=== PATIENT | female | born 1935 | race Caucasian/White ===

== ENCOUNTER → 2016-07-17 | Outpatient (CLI) | payer OTHER | LOC: BHCLAF 13:15 | PROVIDERS: ATTEND Internal Medicine Cardiovascular Disease | DX: I35.0 Nonrheumatic aortic (valve) stenosis (principal); I25.10 Atherosclerotic heart disease of native coronary artery without angina pectoris | CPT/HCPCS: 93306-PO ==

== ENCOUNTER → 2016-12-14 | Outpatient (CLI) | payer OTHER | LOC: CIMAGING 10:17 | DX: Z12.31 Encounter for screening mammogram for malignant neoplasm of breast (principal) | CPT/HCPCS: G0202 ==

== ENCOUNTER → 2016-12-24 | Outpatient (CLI) | payer OTHER | LOC: CIMAGING 13:23 | PROVIDERS: ATTEND Internal Medicine | DX: R92.8 Other abnormal and inconclusive findings on diagnostic imaging of breast (principal) | CPT/HCPCS: 76641; G0206 ==

== ENCOUNTER → 2017-01-06 | Outpatient (CLI) | payer OTHER ==
[~2017-01-06] MED LIST: BUPIVACAINE 0.5% 10 ML SDV ONE; LIDO/EPI 1% **Not for Epidural 20 ML MDV ONE; THROMBIN (BOVINE) 5,000 UNIT VIAL TP ONE
== END ==
LOC: FIMAGING 07:11
PROVIDERS: ATTEND Internal Medicine
PROC: 0HBT3ZX Excision of Right Breast, Percutaneous Approach, Diagnostic (ICD-10-PCS; principal; 2017-01-06)
DX: C50.911 Malignant neoplasm of unspecified site of right female breast (principal)
CPT/HCPCS: 19083; 88361; G0206

== ENCOUNTER 2017-01-21 06:26 | Day surgery (SDC) | payer OTHER ==
[2017-01-21] MEDS ORDERED: GADOBUTROL 10 ML VIAL IVP ONE (06:51)
[2017-01-21] MEDS ORDERED: LIDOCAINE 1% 300 MG/30 ML SDV ONE (07:17)
[2017-01-21] MEDS ORDERED: LIDOCAINE 1% 2 ML INJ ONE (07:31)
[2017-01-21] MEDS ORDERED: LIDOCAINE 1% 2 ML INJ ID PRN ×2 (07:35→11:00)
[2017-01-21] MEDS ORDERED: LR 1,000 ML IV ONE (07:35)
[2017-01-21] MEDS ORDERED: ceFAZolin 2 GM/DEXTROSE 100 ML IV ONE ×2 (07:58→11:00)
[2017-01-21] MEDS ORDERED: BUPIVACAINE 0.5% 30 ML SDV ONE (08:49)
[2017-01-21] MEDS ORDERED: LIDO/EPI 1% **for epidural** 30 ML SDV ONE (08:50)
--- NOTE | 2017-01-21 09:06 | GHP ---
[f rep st] PREOP HISTORY AND PHYSICAL DATE OF ANTICIPATED SURGERY: 01/21/2017. 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 HISTORY OF PRESENT ILLNESS: The patient is an 81-year-old woman who had a positive screening mammogram on 12/14/2016, showing an asymmetric density in the lateral central right breast. Diagnostic mammogram and ultrasound showed irregularly marginated mass at the 9 o'clock position of the right breast, measuring 3 x 4 x 9 mm on 12/24/2016, and had a biopsy. Pathology revealed Oralia grade II right breast invasive carcinoma with ductal and lobular features at the 9 o'clock position, 4 cm from the nipple. ER/TX positive. HER2 /lea pending. She has a history of left breast DCIS in 1998, treated with lumpectomy without radiation. She has a history of breast biopsy in 2013, which was benign. She denies any other family history of breast cancer or other cancers. She first menstruated at age 13, last measured in her 40s. G2, P2 and she was 30 years old at the of her first child. She has never taken hormone replacement therapy. PAST MEDICAL HISTORY: Aortic regurgitation, aortic stenosis, arthritis, history of breast cancer, coronary artery disease, gout, hyperlipidemia, hypertension, and mitral regurgitation. PAST SURGICAL HISTORY: CABG, lumpectomy. MEDICATIONS: Allopurinol, atorvastatin, Centrum silver, Ecotrin 325 mg, fish oil, furosemide, metoprolol, Norvasc, ProAir, ramipril, Spiriva, vitamin D3. ALLERGIES: No known drug allergies. FAMILY HISTORY: No significant family medical history. SOCIAL HISTORY: She is . She is a former smoker. She denies any current alcohol, recreational drug use or tobacco use. REVIEW OF SYSTEMS: 10-point review of systems negative, aside from HPI. PHYSICAL EXAMINATION: GENERAL: Well-developed, well-nourished woman in no acute distress. HEENT: Normocephalic, atraumatic. No gross hearing deficits. Pupils equal and round. No scleral icterus. Mucous membranes moist. NECK: Trachea midline. RESPIRATORY: No increased work of breathing. LUNGS: Clear to auscultation bilaterally. No increased work of breathing. CARDIOVASCULAR: Regular rate and rhythm. No peripheral edema. SKIN: Warm and dry. MUSCULOSKELETAL: Normal gait. Normal nails. PSYCH: Mood and affect normal. NEURO: Grossly intact. BREASTS: Breast exam shows scar tissue in the left lateral breast from previous lumpectomy, intertrigo of the right inframammary fold. Evidence of previous breast biopsy in the right upper outer breast. No other palpable masses, nipple drainage, or skin changes bilaterally. LYMPH: No cervical, supraclavicular, or axillary lymphadenopathy. IMPRESSION AND PLAN: The patient is an 81-year-old woman with a right upper outer breast cancer, invasive with both ductal and lobular features. She will undergo right lumpectomy with sentinel lymph node biopsy. We discussed that she may require radiation after lumpectomy. We discussed risks of surgery including, but not limited to stroke, heart attack, blood clots or . We discussed risks including infection, bleeding, scar ulceration and cosmesis. We also discussed risks of a sentinel lymph node biopsy, including infection, bleeding, nerve damage and lymphedema. She has declined a preop MRI. She is holding off on genetic testing at this time. She would like to discuss this further with her family. She understands the risks of surgery and would like to proceed. Patient was additionally seen by Dr. Carrie Fermin, who agrees with the above impression and plan. She had her questions answered to her satisfaction. /[id number]/MODL MTDD
--- NOTE | 2017-01-21 11:34 | PDHPUP ---
History & Physical Update H&P update statement: This history and physical update is based on an assessment of the patient which was completed after admission or registration (within 24 hours), but prior to the surgery/procedure. H&P update: H&P reviewed & patient examined, no change in patient's condition since H&P completed
[2017-01-21] MEDS ORDERED: MIDAZOLAM 2 MG/2 ML VIAL IVP ONE (11:42)
--- NOTE | 2017-01-21 11:42 | PDANEPAE ---
ANE Past Medical History - Cardiovascular History Hx Hypertension: Yes Hx Arrhythmias: No Hx Chest Pain: No Hx Coronary Artery / Peripheral Vascular Disease: Yes Hx CHF / Valvular Disease: No Hx Palpitations: No Cardiovascular History Comment: AORTIC REGURITATION/STENOSIS - Pulmonary History Hx COPD: Yes Hx Asthma/Reactive Airway Disease: No Hx Recent Upper Respiratory Infection: No Hx Oxygen in Use at Home: No Hx Sleep Apnea: No Sleep Apnea Screening Result - Last Documented: Positive Pulmonary History Comment: CHRONIC COUGH AND PHLEM CONTROLLED WITH RX - Neurologic History Hx Cerebrovascular Accident: No Hx Seizures: No Hx Dementia: No - Endocrine History Hx Diabetes: No - Renal History Hx Renal Disorders: No - Liver History Hx Hepatic Disorders: No - Neurological & Psychiatric Hx Hx Neurological and Psychiatric Disorders: No - Cancer History Hx Cancer: No - Congenital Disorder History Hx Congenital Disorders: No - GI History Hx Gastrointestinal Disorders: No - Other Health History Other Health History: GPIT. ARTHRITIS - Chronic Pain History Chronic Pain: No - Surgical History Prior Surgeries: GABG X2 2001. TONSILLECTOMY. POST HEART CATH SURG TO REPAIR/ REPLACE FEMORAL ARTERY ANE Review of Systems - Exercise capacity METS (RN): 3 METS ANE Patient History - Allergies Allergies/Adverse Reactions: No Known Allergies Allergy (Verified 01/10/16 13:30) - Home Medications Home Medications: Allopurinol DAILY AT 6AM 01/10/16 [Last Taken 01/21/17 06:00] Altace BID 01/10/16 [Last Taken 01/21/17 06:00] Aspirin DAILY AT 6AM 01/10/16 [Last Taken 01/15/17] Lipitor HS 01/10/16 [Last Taken 01/20/17 20:00] Metoprolol Succinate BID 01/10/16 [Last Taken 01/21/17 06:00] Norvasc DAILY AT 6AM 01/10/16 [Last Taken 01/21/17 06:00] Spiriva Handihaler DAILY06 01/10/16 [Last Taken 01/21/17 06:00] Fish Oil DAILY 01/19/17 [Last Taken 01/15/17] Herbal Drugs DAILY 01/19/17 [Last Taken 01/21/17 06:00] Lasix DAILY06 01/19/17 [Last Taken 01/20/17 07:00] Potassium Chloride DAILY06 01/19/17 [Last Taken 01/21/17 06:00] - NPO status NPO Since - Liquids (Date): 01/21/17 NPO Since - Liquids (Time): 06:00 NPO Since - Solids (Date): 01/20/17 NPO Since - Solids (Time): 19:00 - Anes Hx Anes Hx: no prior problems - Smoking Hx Smoking Status: Former smoker ANE Labs/Vital Signs - Vital Signs Blood Pressure: 173/88 Heart Rate: 63 Respiratory Rate: 16 O2 Sat (%): 93 Height: 167.64 cm Weight: 108.862 kg ANE Physical Exam - Airway Neck exam: FROM Mallampati Score: Class 1 Mouth exam: normal dental/mouth exam - Pulmonary Pulmonary: no respiratory distress - Cardiovascular Cardiovascular: regular rate and rhythym - ASA Status ASA Status: IV ANE Anesthesia Plan Anesthesia Plan: GA w LMA
[2017-01-21] MEDS ORDERED: PROPOFOL 200 MG/20 ML VIAL ONE (11:45)
[2017-01-21] MEDS ORDERED: fentaNYL 100 MCG/2 ML INJ ONE (11:45)
[2017-01-21] MEDS ORDERED: fentaNYL 100 MCG/2 ML INJ IVP PRN (12:40)
[2017-01-21] MEDS ORDERED: NALOXONE HCL 0.4 MG/ML INJ IVP PRN (12:40)
[2017-01-21] MEDS ORDERED: ACETAMINOPHEN 500 MG TAB PO PRN (12:40)
[2017-01-21] MEDS ORDERED: OXYCODONE/APAP 5/325 TAB PO PRN (12:40)
[2017-01-21] MEDS ORDERED: ONDANSETRON 4 MG/2 ML VIAL IVP PRN (12:40)
--- NOTE | 2017-01-21 13:00 | POSTOPPROG ---
Post Op Note Date of Operation: 01/21/17 Surgeon: Carrie Fermin Anesthesiologist: nalini Anesthesia: GET(General Endotracheal) Pre-op Diagnosis: R breast invasive ductal Post-op Diagnosis: same Indication: 81 yo with right breast cancer Procedure: R needle localized lumpectomy, R SLN Findings: clip not in specimen, very fatty breast Inf/Abcess present in the surg proc area at time of surgery?: No EBL: Minimal Specimen(s): lumpectomy, sln, margins
--- NOTE | 2017-01-21 13:16 | POSTANESTH ---
Post Anesthetic Evaluation Cardiovascular Status: Normal, Stable Respiratory Status: Normal, Stable Level of Consciousness/Mental Status: Can Participate in Eval Pain Control: Adequate, Prn Tx Ordered Nausea/Vomiting Control: Adequate, Prn Tx Ordered Complications Possibly Related to Anesthesia: None Noted
[2017-01-21 13:30] VITALS: TEMP 97.9
[2017-01-21] MEDS ORDERED: OXYCODONE/APAP 5/325 TAB ONE (14:03)
[2017-01-21 14:28] VITALS: BP 183/65; PULSE 64; RESP 18; O2SAT 87
--- NOTE | 2017-01-21 23:08 | GOP ---
[f rep st] OPERATIVE REPORT DATE OF OPERATION: 01/21/2017 SURGEON: Carrie Fermin MD ANESTHESIA: General. ANESTHESIOLOGIST: Abdiel Rey MD PREOPERATIVE DIAGNOSIS: Right breast invasive ductal carcinoma. POSTOPERATIVE DIAGNOSIS: Right breast invasive ductal carcinoma. PROCEDURE PERFORMED: Right needle-localized lumpectomy, right sentinel lymph node. FINDINGS: The clip was not contained within the specimen. Her breast tissue was very fatty and fragmented. I did encounter the hematoma cavity and came around that. Miller lymph node was negative. ESTIMATED BLOOD LOSS: 10 cc. INDICATIONS: The patient is an 81-year-old woman with a history of left breast ductal carcinoma in situ, and now has right breast invasive ductal carcinoma. DESCRIPTION OF PROCEDURE: The patient was brought into the operating room, placed supine on the table, and general anesthesia was administered. Her right breast and axilla were prepped and draped in the usual sterile fashion. I infiltrated all sites with 0.5% Marcaine prior to making incisions. I made an incision beneath the hair-bearing portion of her right axilla. I dissected down through the subcutaneous space. I used the gamma probe to identify the sentinel lymph node. It was fairly quiet, so I decided to make an ellipse around the wire and created superior inferior skin flaps. Her breast tissue was extremely fatty and was falling apart in my fingers. I continued my dissection and traced the wire. I came across the hematoma cavity and then obtained wider margins. I ultimately came beyond the level of the wire. The specimen was the inked green anterior, red superior, yellow medial, blue inferior, orange lateral, black posterior. This was submitted to Radiology. The clip was not contained within the specimen. I took an additional superior margin inked red, medial margin inked yellow, inferior margin inked blue, lateral margin inked orange, posterior margin inked black. These were submitted to Pathology for permanent. Hemostasis was achieved in the lumpectomy cavity. Clips were placed to leslie it. I then went back to the axillary space and used the gamma probe, and this time I found a small sentinel lymph node that measured about 200. This was sent to Pathology for frozen. The result showed the lymph node was negative. The probe was returned to the cavity and it was quiet. Hemostasis was achieved. Each wound was closed with 3-0 Vicryl followed by 4-0 Monocryl. Mastisol, Steri-Strips, and dressings were applied. She was awakened in the operating room, extubated, transferred to PACU in stable condition. /[id number]/MODL MTDD
== END 2017-01-21 15:12 | disposition home or self-care (01) ==
LOC: FIMAGING 06:26
PROVIDERS: ATTEND Surgery
DX: C50.911 Malignant neoplasm of unspecified site of right female breast (principal)
CPT/HCPCS: 19301; 38500; 76098; 78195; A9520; A9585; J0690; J2250; J2704; J3010

== ENCOUNTER → 2017-09-03 | Outpatient (CLI) | payer OTHER | LOC: BHCLAF 13:15 | PROVIDERS: ATTEND Internal Medicine Interventional Cardiology | DX: I35.9 Nonrheumatic aortic valve disorder, unspecified (principal); I10 Essential (primary) hypertension; I25.10 Atherosclerotic heart disease of native coronary artery without angina pectoris | CPT/HCPCS: 93306-PO ==

== ENCOUNTER → 2017-12-15 | Outpatient (CLI) | payer OTHER | LOC: CIMAGING 08:44 | PROVIDERS: ATTEND Internal Medicine Hematology & Oncology | DX: Z12.31 Encounter for screening mammogram for malignant neoplasm of breast (principal); Z85.3 Personal history of malignant neoplasm of breast ==

== ENCOUNTER → 2018-03-03 | Outpatient (CLI) | payer OTHER | LOC: BRMIMAGING 10:46 | PROVIDERS: ATTEND Internal Medicine | DX: E21.3 Hyperparathyroidism, unspecified (principal); E04.1 Nontoxic single thyroid nodule ==

== ENCOUNTER → 2018-03-24 | Outpatient (CLI) | payer OTHER | LOC: BHCLAF 09:15 | PROVIDERS: ATTEND Internal Medicine Cardiovascular Disease | DX: Q25.3 Supravalvular aortic stenosis (principal); I25.10 Atherosclerotic heart disease of native coronary artery without angina pectoris; I34.0 Nonrheumatic mitral (valve) insufficiency; I48.92 Unspecified atrial flutter | CPT/HCPCS: 36415-PO; 93005-PO ==

== ENCOUNTER → 2018-09-20 | Outpatient (CLI) | payer OTHER | LOC: BHFA 10:00 | PROVIDERS: ATTEND Internal Medicine Cardiovascular Disease | DX: I48.91 Unspecified atrial fibrillation (principal) ==

== ENCOUNTER → 2018-12-16 | Outpatient (CLI) | payer OTHER | LOC: CIMAGING 09:54 ==